=== PATIENT | male | born 1930 | race Caucasian/White ===

== ENCOUNTER 2016-06-05 15:16 | Inpatient (IN) | payer OTHER ==
[2016-06-05] MEDS ORDERED: NS 500 ML IV ONE ×4 (15:31→17:56)
--- NOTE | 2016-06-05 15:37 | PROVIDER DOCUMENTATION ---
HPI-EENT General <Christiano Leach - Last Filed: 06/05/16 16:24> - General Source: patient, family - History of Present Illness-EENT General EENT Location: reports: nose Quality of Pain: reports: none Severity: reports: mild, moderate Onset/Duration: reports: abrupt, last night Timing: reports: intermittent Prearrival Treatment: Initiated no prearrival treatment Associated Symptoms: denies: cough, ear drainage, facial pain/swelling, fever, sore throat, tooth pain Locality of Occurance: Home Similar Symptoms Previously?: No Recently seen or treated by another doctor?: No - Nose Nose Problem Symptoms: nosebleed <Urban Sorto - Last Filed: 06/05/16 17:57> - General Stated Complaint: NOSEBLEED Time Seen by Provider: 06/05/16 15:19 Allergies/Adverse Reactions: Patient Allergies Allergy/AdvReac Type Severity Reaction Status Date / Time hydrocodone bitartrate * AdvReac Unknown Verified 06/05/16 16:59 [From [place]] Home Medications: Home Medication List Medication Instructions Recorded Confirmed Last Taken Type Acetaminophen [Tylenol] 325 mg PO HS 01/09/12 06/05/16 03/03/14 History Aspirin [Aspir 81] 81 mg PO DAILY 01/09/12 06/05/16 03/03/14 History Divalproex Sodium [Depakote] 500 mg PO DAILY 01/09/12 06/05/16 06/05/16 07:00 History Gemfibrozil 1 tab PO DAILY 01/09/12 06/05/16 06/04/16 20:00 History Levothyroxine [Synthroid] 75 microgm PO DAILY 01/09/12 06/05/16 06/05/16 07:00 History Metoprolol [Lopressor] 1 tab PO DAILY 01/09/12 06/05/16 06/05/16 07:00 History PRAVAstatin [Pravachol] 40 mg PO QHS 01/09/12 06/05/16 06/04/16 20:00 History Ranitidine HCl [Zantac] 1 tab PO BID 01/09/12 06/05/16 06/05/16 07:00 History Amitriptyline HCl 10 mg PO QHS 06/05/16 06/05/16 06/04/16 20:00 History Duloxetine HCl [Cymbalta] 60 mg PO DAILY 06/05/16 06/05/16 06/05/16 08:00 History Furosemide [Lasix] 40 mg PO DAILY 06/05/16 06/05/16 06/05/16 07:00 History Gabapentin 300 mg PO BID 06/05/16 06/05/16 06/05/16 07:00 History Hydrocodone/Acetaminophen [[place] 1 tab PO QHS 06/05/16 06/05/16 06/04/16 20:00 History 5-325 Tablet] LISINOpril [Prinivil] 10 mg PO DAILY 06/05/16 06/05/16 06/05/16 07:00 History Warfarin Sodium [Coumadin] 5 mg PO QHS 06/05/16 06/05/16 06/04/16 20:00 History - History of Present Illness-EENT General Nature of Presenting Problem: Patient is a 86 y/o M that presents to the ER with nosebleed. Family reports that symptoms began last pm and was worse then the lastnight. Patient' family reports bleeding right foot. Patient's oxygenation was 80% on RA at scene per EMS (Urban Sorto) Review of Systems - Adult - REVIEW OF SYSTEMS - ADULT Constitutional: reports: no symptoms reported Eyes: denies: decreased vision, blurred vision, double vision Ears, Nose, Mouth & Throat: reports: epistaxis. denies: ear pain, throat pain Cardiovascular: denies: chest pain, palpitations Respiratory: reports: shortness of breath. denies: cough, wheezing Gastrointestinal: denies: abdominal pain, diarrhea, nausea, vomiting Genitourinary: reports: no symptoms reported Musculoskeletal: denies: back pain, joint pain, neck pain Integumentary: reports: no symptoms reported Neurological: reports: no symptoms reported Psychiatric: reports: no symptoms reported Endocrine: reports: no symptoms reported Hematologic/Lymphatic: reports: no symptoms reported Allergic/Immunologic: reports: no symptoms reported All Other Systems: Reviewed and Negative <Urban Sorto - Last Filed: 06/05/16 17:57> Past History - Adult - PAST MEDICAL HISTORY-ADULT Review of Records: reports: Old Records Reviewed, Nursing Assessment Review, Medications Reviewed Cardiovascular: reports: CAD, HTN, hyperlipidemia, SD Gastrointestinal: reports: GERD Musculoskeletal: reports: denies history - PRIOR SURGERIES/PROCEDURES Surgical/Procedure History: reports: appendectomy, CABG, cholecystectomy, hernia repair - IMMUNIZATION STATUS Childhood Immunizations: See Nurse Assessment Flu Vaccine: See Nurse Assessment - FAMILY HISTORY Family History: reviewed, not pertinent - SOCIAL HISTORY Smoking: quit greater than 1 year, cigarettes Living Situation: family <Urban Sorto - Last Filed: 06/05/16 17:57> Physical Exam- EENT - Physical Exam EENT Abdominal Exam: other (stool is semi-solid and very dark. Sent to lab for guiac. ) <Christiano Leach - Last Filed: 06/05/16 16:24> - Physical Exam EENT Initial Vital Signs Reviewed: Yes General Appearance: alert, other (chronic ill appearing) Eye Exam: bilateral eye: normal inspection, PERRL Nasal Exam: active bleeding (small amount, dripping). negative: sinus tenderness Throat Exam: normal mouth inspection Neck: full range of motion, normal inspection Respiratory: no respiratory distress, no accessory muscle use Cardiovascular: regular rate, rhythm, no edema, no murmur Abdominal Exam: normal bowel sounds, non tender, soft, no organomegaly, no pulsatile mass Extremity: pelvis stable. negative: pedal edema, swelling Integumentary: warm/dry, ecchymosis (toenails(left foot)) Neurologic: grossly normal, no motor/sensory deficits Psych/Mental Status: oriented x 3. negative: anxious, tearful <Urban Sorto - Last Filed: 06/05/16 17:57> Progress <Christiano Leach - Last Filed: 06/05/16 16:24> - XRAY 1 XRAY Study: Chest Impression: Abnormal XRAY Interpretation: poor inspiratory effort otherwise nml - CONSULTS/PCP/HOSPITALIST Notification #1 *Consult/PCP/Hospitalist*: Hospitalist Time Discussed: 17:57 Consult Disposition: Will see in ED, Admit <Urban Sorto - Last Filed: 06/05/16 17:57> - PLAN OF CARE/RESULTS Progress/Plan/Lab Results: plan of care-labs, cxr, ekg, fluids Vital Signs Temp Pulse Resp BP Pulse Ox 06/05/16 17:44 62 20 85/39 94 L 06/05/16 16:49 62 83/55 06/05/16 15:35 64 79/43 06/05/16 15:25 97.8 F 68 16 98/57 84 L hydrocodone bitartrate * [From [place]] Adverse Reaction (Verified 06/05/16 16:59) Unknown Pranay's spouse states that he hallucinates when taking hydrocodone Acetaminophen [Tylenol] 325 mg PO HS 01/09/12 Aspirin [Aspir 81] 81 mg PO DAILY 01/09/12 Divalproex Sodium [Depakote] 500 mg PO DAILY 01/09/12 Gemfibrozil 1 tab PO DAILY 01/09/12 Levothyroxine [Synthroid] 75 microgm PO DAILY 01/09/12 Metoprolol [Lopressor] 1 tab PO DAILY 01/09/12 PRAVAstatin [Pravachol] 40 mg PO QHS 01/09/12 Ranitidine HCl [Zantac] 1 tab PO BID 01/09/12 Amitriptyline HCl 10 mg PO QHS 06/05/16 Duloxetine HCl [Cymbalta] 60 mg PO DAILY 06/05/16 Furosemide [Lasix] 40 mg PO DAILY 06/05/16 Gabapentin 300 mg PO BID 06/05/16 Hydrocodone/Acetaminophen [[place] 5-325 Tablet] 1 tab PO QHS 06/05/16 LISINOpril [Prinivil] 10 mg PO DAILY 06/05/16 Warfarin Sodium [Coumadin] 5 mg PO QHS 06/05/16 Laboratory 06/05/16 06/05/16 06/05/16 15:34 15:34 15:34 WBC RBC Hgb Hct MCV MCH MCHC RDW Std Deviation Plt Count MPV Immature Gran % (Auto) Neut % (Auto) Lymph % (Auto) [place] % (Auto) Eos % (Auto) Baso % (Auto) Immature Gran # (Auto) Neut # (Auto) Lymph # (Auto) [place] # (Auto) Eos # (Auto) Baso # (Auto) Segmented Neutrophils Lymphocytes Monocytes Eosinophils Nucleated RBCs Atypical Lymphocytes Hypochromia Vacuolization Polychromasia Poikilocytosis Anisocytosis Macrocytosis Spherocytes Sodium 136 Potassium 5.5 H Chloride 101 Carbon Dioxide 18 L Anion Gap 17 BUN 108 H Creatinine 3.8 H Estimated GFR/1.73 m2 15 BUN/Creatinine Ratio 28 Glucose 136 H Calculated Osmolality 308 Calcium 8.2 L Total Bilirubin 0.51 AST 33 ALT 16 Alkaline Phosphatase 67 Troponin T 0.028 Total Protein 5.4 L Albumin 2.9 L Globulin 2.5 Albumin/Globulin Ratio 1.2 Blood Type B POSITIVE Antibody Screen NEGATIVE Crossmatch See Detail 06/05/16 15:34 WBC 11.48 H RBC 1.62 L Hgb 5.8 L* Hct 17.4 L MCV 107.4 H MCH 35.8 H MCHC 33.3 RDW Std Deviation 15.3 H Plt Count 196 MPV 11.8 H Immature Gran % (Auto) 1.0 H Neut % (Auto) 58.2 Lymph % (Auto) 29.6 [place] % (Auto) 8.4 Eos % (Auto) 2.5 Baso % (Auto) 0.3 Immature Gran # (Auto) 0.12 H Neut # (Auto) 6.67 H Lymph # (Auto) 3.40 [place] # (Auto) 0.96 H Eos # (Auto) 0.29 Baso # (Auto) 0.04 Segmented Neutrophils 52 Lymphocytes 36 Monocytes 8 Eosinophils 2 Nucleated RBCs 1 H Atypical Lymphocytes 2.0 Hypochromia 2+ Vacuolization OCCASIONAL Polychromasia 1+ Poikilocytosis 2+ Anisocytosis 2+ Macrocytosis 1+ Spherocytes OCCASIONAL Sodium Potassium Chloride Carbon Dioxide Anion Gap BUN Creatinine Estimated GFR/1.73 m2 BUN/Creatinine Ratio Glucose Calculated Osmolality Calcium Total Bilirubin AST ALT Alkaline Phosphatase Troponin T Total Protein Albumin Globulin Albumin/Globulin Ratio Blood Type Antibody Screen Crossmatch Orders Category Date Time Status Cardiac Monitoring DIRECTED Care 06/05/16 15:28 Active Oxygen Therapy- ED Nursing DIRECTED Care 06/05/16 15:28 Active Saline Loc NOW Care 06/05/16 15:20 Active Transfuse .Give-Transfuse Care 06/05/16 16:51 Active CHEST-1 VIEW [RAD] Stat Exams 06/05/16 15:28 Completed CBC WITH DIFF [HEME] Stat Lab 06/05/16 15:34 Completed COMPREHENSIVE METABOLIC PANEL [CHEM] Stat Lab 06/05/16 15:34 Completed FRESH FROZEN PLASMA [BBK] Stat Lab 06/05/16 15:34 Results LRPC (RED CELLS) [BBK] Stat Lab 06/05/16 15:34 Results OCCULT BLOOD SCREENING [STOOL] Stat Lab 06/05/16 16:30 Completed PROTIME WITH INR [COAG] Stat Lab 06/05/16 17:50 Ordered PT [PROTIME WITH INR] [COAG] Stat Lab 06/05/16 15:34 Received TROPONIN T Stat Lab 06/05/16 15:34 Completed TYPE & SCREEN [BBK] Stat Lab 06/05/16 15:34 Results 0.9% Sodium Chloride Inj [Ns] 500 ml Med 06/05/16 15:31 Discontinued IV 999 mls/hr 0.9% Sodium Chloride Inj [Ns] 500 ml Med 06/05/16 16:51 Discontinued IV As Directed 0.9% Sodium Chloride Inj [Ns] 500 ml Med 06/05/16 17:54 Discontinued IV As Directed Ns 500 ml IV Bolus X1 Med 06/05/16 17:56 Ordered 0.9% Sodium Chloride Inj [Ns] 500 ml IV 999 mls/hr Phytonadione [Vitamin K] 10 mg Med 06/05/16 17:51 Active 0.9% Sodium Chloride Inj [Ns] 50 ml IV NOW Pulse Oximetry Stat Oth 06/05/16 15:28 Active EKG [EKG] Stat Ther 06/05/16 15:28 Ordered (Urban Sorto) Departure <Christiano Leach - Last Filed: 06/05/16 16:24> - Departure Time of Disposition Order: 17:57 Certified Medical Emergency: Emergent - Critical Care Note Total Time (mins): 35 Critical Care Statement: This patient required my direct personal management to treat or rule out processes, the absence of which, could potentiallly result in sudden, clinically significant life or limb threatening deterioration. <Urban Sorto - Last Filed: 06/05/16 17:57> - Departure DIAGNOSIS: Weakness Coumadin toxicity Qualifiers: Encounter type: initial encounter Injury intent: accidental or unintentional Qualified Code(s): T45.511A - Poisoning by anticoagulants, accidental ( unintentional), initial encounter Anemia Qualifiers: Anemia type: other cause Other causes of anemia: other cause, not classified Qualified Code(s): D64.89 - Other specified anemias Disposition: ADMITTED INPATIENT 09 Condition: Stable Attestation - Scribe Verification/Attestation Scribe:: Urban Sorto Acting as Scribe for:: Christiano Leach Scribe documention review:: This chart was documented by a scribe and accurately reflects the service the provider performed and the decisions made by the provider. <Urban Sorto - Last Filed: 06/05/16 17:57> Physician Attestation - Physician Attestation I, the provider, attest to the following statement:: Christiano Leach Physician documentation Attestation:: This documentation recorded by the scribe accurately reflects the service I personally performed and the decisions made by me. <Urban Sorto - Last Filed: 06/05/16 17:57>
--- NOTE | 2016-06-05 16:07 | Diag Imaging Result Document ---
PROCEDURE NAME: CHEST-1 VIEW - 06/05/2016 PORTABLE CHEST: COMPARISON: Compared to 01/23/2012. FINDINGS: Poor inspiratory effort. Sternal wires are present. The heart is not enlarged. The vessels are not distended. No pneumonia. No pleural effusions identified. IMPRESSION: Poor inspiratory effort. Otherwise negative exam.
[2016-06-05 16:42] LABS: ALBUMIN 2.9 g/dL (3.5-5.0); CALCIUM 8.2 mg/dL (8.8-10.2); POTASSIUM 5.5 mmol/L (3.5-5.1); TOTAL BILIRUBIN 0.51 mg/dL (0.20-1.00); TOTAL PROTEIN 5.4 g/dL (6.3-8.3)
[2016-06-05 16:44] LABS: HEMOGLOBIN 5.8 g/dL (14.0-18.0)
[2016-06-05 16:46] LABS: BASO% 0.3 % (0.0-0.8); EOS# 0.29 X1000 (0.0-0.7); EOS% 2.5 % (0.0-10.0); HEMATOCRIT 17.4 % (42.0-52.0); IMM GRAN# 0.12 X1000 (0.0-0.04); LYMPH% 29.6 % (20.5-51.1); MANUAL DIFF NEEDED? YES; MCH 35.8 PG (27-31); MCHC 33.3 g/dL (33-37); MCV 107.4 FL (81-99); MONO# 0.96 X1000 (0.11-0.59); MONO% 8.4 % (1.7-9.3); MPV 11.8 FL (7.4-10.4); NEUT% 58.2 % (42.2-75.2); PLT 196 X1000 (130-400); RBC 1.62 XMIL (4.7-6.1)
[2016-06-05 17:31] LABS: EOS 2 % (1-10); HYPOCHROM 2+; LYMPHS 36 % (21-51); MONO 8 % (1-9); NRBC 1 % (0-0); POLYCHROM 1+
[2016-06-05] MEDS ORDERED: VITAMIN K 10 MG in NS 50 ML IV ONE (17:51)
[2016-06-05 17:58] LABS: INR > 11.25; PROTIME > 100.0 Seconds (9.2-11.7)
--- NOTE | 2016-06-05 18:53 | ED EKG INTERP ---
EKG Interpretation - EKG Time of EKG reading by physician:: 18:40 EKG Read and Signed by:: Jabier Turner EKG Interpretation (*Must complete 3 of following elements*): Normal Rate: 59 Rhythm: SR W/ PAC [place]: normal QRS: normal CO Interval: normal ST Wave: normal Attestation - Scribe Verification/Attestation Scribe:: Kaylee Bowling Acting as Scribe for:: Jabier Turner Scribe documention review:: This chart was documented by a scribe and accurately reflects the service the provider performed and the decisions made by the provider. Physician Attestation - Physician Attestation I, the provider, attest to the following statement:: Jabier Turner Physician documentation Attestation:: This documentation recorded by the scribe accurately reflects the service I personally performed and the decisions made by me.
--- NOTE | 2016-06-05 19:59 | HISTORY AND PHYSICAL ---
PRIMARY CARE PHYSICIAN: Louie Smart M.D. CHIEF COMPLAINT: Nosebleed and tarry stool. HISTORY OF PRESENT ILLNESS: The patient is an 86-year-old white male with a history of DVT in the right lower extremity who was on Coumadin, who presented to the emergency room with a nosebleed for the past 2 days. The patient is very weak and fatigued, and his gave the majority of the history. According to his , the patient went and had his INR checked Saturday and the level was fine. According to her, he was told to go home and continue with his Coumadin. The patient took the medication as prescribed but his noticed that he started having nosebleeds for which he has a history of nosebleeds in the past, but this was much more severe. She tried to pack it with ice and it stopped, but when he stood up it started dripping again, and this was concerning to her so she called EMS who brought him to the emergency room. The initial lab work in the emergency room found the patient's INR greater than 11, and his hemoglobin and hematocrit of 5.8 and 17.4. The patient appeared very pale and he was a little on the drowsy side. He was able to answer a few questions but appeared tired, very weak and fatigued. On further history, his reported the patient has been having tarry stool for some time. Per his the patient was doing okay with Xarelto but because of the cost his primary care doctor switched him over to Coumadin instead. The patient denied having any fever or chills. He denies having any recent sick contacts. The patient denied having any history of bleeding disorder but he has just nosebleeds even on aspirin. The patient is very immobile. He can go from the chair to the kitchen and to the bathroom, and that is about all he is able to do. PAST MEDICAL HISTORY: 1. Hypertension. 2. Peripheral neuropathy. 3. Hypothyroidism. 4. Depression. 5. Chronic pain. 6. Seizure disorder. 7. Right lower extremity deep vein thrombosis. PAST SURGICAL HISTORY: 1. Appendectomy and cholecystectomy. 2. Hernia repair. 3. Back surgery. 4. CABG. 5. Bilateral carpal tunnel surgery. 6. Cataract surgery. 7. Multiple skin lesions removed. ALLERGIES: The patient is allergic to hydrocodone bitartrate which makes him confused. FAMILY HISTORY: Reviewed and noncontributory. SOCIAL HISTORY: The patient does drink alcohol. The last alcohol he had was moonshine about 2 weeks ago. He quit smoking. No drugs. HOME MEDICATIONS: 1. Aspirin 325 one tablet p.o. daily. 2. Aspirin 81 mg p.o. daily. 3. Depakote 500 minutes mg p.o. daily. 4. Gemfibrozil 650 daily. 5. Metoprolol 50 mg p.o. daily. 6. Pravastatin 40 mg p.o. at bedtime. 7. Zantac 150 mg p.o. b.i.d. 8. Synthroid 75 mcg p.o. daily. 9. Amiodarone 10 mg at bedtime. 10. Cymbalta 60 mg p.o. daily. 11. Gabapentin 300 mg b.i.d. 12. Hydrocodone and Tylenol 1 tablet p.o. at bedtime. 13. Lasix 40 mg p.o. daily. 14. Lisinopril 10 mg p.o. daily. 15. Coumadin 5 mg at bedtime. REVIEW OF SYSTEMS: Twelve systems were reviewed and were negative except for what was mentioned in HPI. PHYSICAL EXAMINATION: VITAL SIGNS: Blood pressure 91/67, pulse of 63, respiration 18, temperature 97.6 degrees, sat of 98% on room air. GENERAL APPEARANCE: Very pale appearing, elderly white male, mildly drowsy and weak. HEENT: Anicteric, clear conjunctivae. No evidence of are blood clots in his nose. NECK: Supple. No JVD. No bruit. CARDIOVASCULAR: S1, S2. Normal rate and rhythm. No murmur, rubs, or gallops. ABDOMEN: Soft, nontender, nondistended. Normoactive bowel sounds. MUSCULOSKELETAL: No clubbing, cyanosis, or edema. RECTAL EXAMINATION: Positive for Hemoccult. No bright red blood. NEUROLOGIC: Drowsy but able to answer questions, very weak and fatigued. LABORATORY: White count 11.48, hemoglobin 5.8, hematocrit 17.4, platelets 196, 000. Chemistry: Sodium 136, potassium 5.5, chloride 101, bicarb 18, BUN 108, creatinine 3.8, glucose of 136. Liver function test is particularly within normal limits. ASSESSMENT AND PLAN: This is an 86-year-old white male admitted to the hospital for GI bleed, nosebleeds and supratherapeutic INR. 1. Anemia secondary to upper GI bleed and nosebleed. His INR is greater than 11. We gave the patient SQ 10 vitamin K and we transfused him 2 units. We will recheck his level. We will continue to transfuse to get his hemoglobin and hematocrit above 7 and 21. Consult GI in the morning. There is no active bleeding. We will send an iron panel. 2. Hypotension. The patient is currently hypotensive probably secondary to volume depletion. We will continue IV fluid, normal saline at 125 mL/h. The patient had several L bolus in the emergency room. Hold all hypertensive medications for now. 3. Depression. We will resume Cymbalta and amitriptyline. 4. Acute kidney failure probably secondary to volume depletion pre- renal. We will recheck creatinine and BUN in the morning. If still elevated, we will send the patient for and ultrasound of the kidney for what appears to be prerenal causing his kidneys to fail. We will consult Nephrology in the morning if kidney function continues to get worse. 5. DVT. The patient's INR is supratherapeutic. We will hold his Coumadin. We will recheck his INR in the morning. 6. Code Status. The patient still has not decided whether he wants to be a full code or not. We will readdress it in the morning. 7. Medications, laboratory, and radiology were reviewed. CRITICAL CARE TIME: 45 minutes. MTDD
[2016-06-05 20:19] LABS: PROTIME > 100.0 Seconds (9.2-11.7)
[2016-06-05 20:20] LABS: INR > 11.25
[2016-06-06] MEDS ORDERED: SODIUM CHLORIDE 0.9% INJ ONE (00:21)
[2016-06-06] MEDS: NEURONTIN PO SCH ×3 (01:34→20:26)
[2016-06-06] MEDS: ZOFRAN IV PRN ×2 (01:34→20:27)
[2016-06-06] MEDS: ELAVIL PO SCH ×2 (01:34→20:30)
[2016-06-06] MEDS: NS 1,000 ML IV SCH ×4 (01:34→22:34)
[2016-06-06] MEDS: PRAVACHOL PO SCH ×2 (01:34→20:27)
[2016-06-06] MEDS: ZANTAC PO SCH ×3 (01:40→20:27)
[2016-06-06] MEDS: NORCO-5 PO SCH ×2 (01:47→20:27)
--- NOTE | 2016-06-06 06:08 | EKG Report ---
Test Performed on : 06/05/2016 6:40:47 PM Test Reason : hypotensive, hx of CABG Blood Pressure : / mmHG Vent. Rate : 059 BPM Atrial Rate : 059 BPM P-R Int : 184 ms QRS Dur : 102 ms QT Int : 442 ms P-R-T Axes : 087 012 019 degrees QTc Int : 437 ms Sinus bradycardia. with premature atrial complexes. Otherwise normal ECG When compared with ECG of 10-JAN-2012 07:37, premature atrial complexes. are now present Criteria for Inferior infarct are no longer present Unconfirmed Result
[2016-06-06] MEDS: SYNTHROID PO SCH (06:47)
[2016-06-06 06:56] LABS: MANUAL DIFF NEEDED? NO
[2016-06-06 07:12] LABS: INR 1.35; PROTIME 14.3 Seconds (9.2-11.7)
[2016-06-06 07:19] LABS: CALCIUM 8.1 mg/dL (8.8-10.2); MAGNESIUM 2.7 mg/dL (1.5-2.7); POTASSIUM 4.8 mmol/L (3.5-5.1)
[2016-06-06 07:23] LABS: BASO% 0.3 % (0.0-0.8); EOS# 0.12 X1000 (0.0-0.7); EOS% 1.9 % (0.0-10.0); HEMOGLOBIN 7.3 g/dL (14.0-18.0); IMM GRAN# 0.07 X1000 (0.0-0.04); IMM GRAN% 1.1 % (0.0-0.5); LYMPH# 2.15 X1000 (1.2-3.4); LYMPH% 34.7 % (20.5-51.1); MCH 32.6 PG (27-31); MCHC 33.2 g/dL (33-37); MCV 98.2 FL (81-99); MONO# 0.58 X1000 (0.11-0.59); MONO% 9.4 % (1.7-9.3); MPV 11.6 FL (7.4-10.4); NEUT% 52.6 % (42.2-75.2); PLT 137 X1000 (130-400); RBC 2.24 XMIL (4.7-6.1)
[2016-06-06 07:49] LABS: URINE CULTURE NEEDED? NO; URINE MICRO REVIEW NEEDED? NO; URINE SOURCE CATH
[2016-06-06 08:00] LABS: BILIRUBIN URINE NEGATIVE (NEGATIVE); BLOOD URINE NEGATIVE (NEGATIVE); COLOR YELLOW; GLUCOSE URINE NEGATIVE (NEGATIVE); LEUKOCYTES URINE NEGATIVE (NEGATIVE); NITRITE URINE NEGATIVE (NEGATIVE); PROTEIN URINE NEGATIVE (NEGATIVE); SP GRAVITY URINE 1.016; TURBIDITY URINE CLEAR (CLEAR); UROBILINOGEN URINE NORMAL (NORMAL)
[2016-06-06 08:02] LABS: UR EPITHELIAL CELLS <10 /HPF (<10); URINE BACTERIA NEGATIVE /HPF; URINE RBC <10 /HPF (<10); URINE WBC <10 /HPF (<10)
--- NOTE | 2016-06-06 08:54 | PROGRESS NOTE ---
DATE: 06/06/2016 SUBJECTIVE: The patient is feeling a little better today. No fever. No chills. No nausea, vomiting, or diarrhea. No recurrent nosebleeds since admission. Has not had a bowel movement. PHYSICAL EXAMINATION: Vital Signs: Blood pressure is 84/36, pulse of 55, respirations 21, temperature of 96.8 degrees, saturations of 91% on 4 L. General Appearance: Elderly, white male. A little drowsy but able to answer questions appropriately. HEENT: Pale appearing. Anicteric sclerae, clear conjunctivae. Neck: Supple. No JVD. No bruit. Cardiovascular: S1 and S2. Normal rate and rhythm. No murmur, rubs, or gallops. Pulmonary: Clear to auscultation bilaterally. GI: Soft, nontender. Mildly distended. Normoactive bowel sounds. Musculoskeletal: Right leg is larger than the left. No pain to palpation. No redness. LABORATORY: His white count today is 6.2, hemoglobin 7.3, hematocrit of 22, platelets 137,000,. PT and INR are normal at 14.3 and 1.35. Chemistry: Sodium 138, potassium 4.8, chloride 104, bicarb 20, BUN 97, creatinine 2.9, glucose of 175. ASSESSMENT AND PLAN: This is an 86-year-old, white male admitted to the hospital for epistaxis and upper gastrointestinal bleed. 1. Upper gastrointestinal bleed, probably secondary to gastritis or ulcer in the setting of a supratherapeutic INR. His INR is has been normalized. We will consult gastroenterology for an endoscopy. If there is no ulcer, we have to restart him back on either heparin or Xarelto. We will consult social and human services assistant to take a look at the co-pay for his Xarelto. 2. Anemia secondary to acute blood loss. We will recheck his hemoglobin and hematocrit later this evening. If it drops below 7 and 21, we will transfuse him again. 3. Hypertension, probably secondary to his blood pressure medications. We have held this since admission. We will continue to monitor the patient in the intensive care unit. We will continue intravenous fluid resuscitation. The patient appeared to be very dehydrated. 4. Acute renal failure, improving. We will continue to monitor his renal function. We will get x-rays and lab in the morning. 5. Code status. The patient is a full code. 6. Deep vein thrombosis prophylaxis. We will put the patient on sequential compression devices for now.
[2016-06-06] MEDS ORDERED: SODIUM CHLORIDE 0.9% 10 ML ONE (08:58)
[2016-06-06] MEDS: PROTONIX IV SCH (09:04)
[2016-06-06] MEDS: CYMBALTA PO SCH (09:05)
[2016-06-06] MEDS: LOPID PO SCH (09:05)
[2016-06-06] MEDS: DEPAKOTE PO SCH (09:05)
--- NOTE | 2016-06-06 09:23 | Diag Imaging Result Document ---
PROCEDURE NAME: CHEST-PORTABLE - 06/06/2016 AP PORTABLE CHEST AT 0855 HOURS: FINDINGS: There is ill-defined opacity present on the right which was not present on 06/05/2016. This appears to be largely in the upper lobe but may be partially in the middle or lower lobes. The left lung is unchanged in appearance. IMPRESSION: Minimal atelectasis or pneumonia particularly in the right upper lobe.
[2016-06-06] MEDS: LEVOPHED 8 MG in D5 1/2 NS 250 ML IV SCH (11:22)
[2016-06-06] MEDS: ZOSYN 2.25 GM/NS 50 ML IV SCH ×2 (14:06→20:27)
--- NOTE | 2016-06-06 14:45 | CONSULTATION ---
DATE OF CONSULTATION: 06/06/2016 REASON FOR CONSULTATION: GI bleed, anemia. 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 Most of the information is obtained from the chart and the nurse. The patient does arouse, but is unable to give full history. His significant other has gone home for the evening. Per report, the patient had become very weak and fatigued. He had started having some nosebleeds over the last several days. He had also noticed some black tarry stool. He came in for evaluation and found to have significant anemia and PT/INR elevation with INR greater than 11. Per report, the patient had been started on Xarelto prior, but it was too expensive and he was changed over to Coumadin. No reported fever. PAST MEDICAL HISTORY: Hypertension, neuropathy hypothyroidism, depression, chronic pain syndrome, history of seizure disorder, history of right lower extremity DVT on Coumadin therapy. PAST SURGICAL HISTORY: Appendectomy, cholecystectomy, hernia repair, back surgery, coronary artery bypass graft, bilateral carpal tunnel surgery, cataract surgery, skin lesions removed. ALLERGIES: Hydrocodone/[place] with unknown reaction. HOME MEDICATIONS: 1. Coumadin 5 mg every night. 2. Zantac 1 tablet twice daily. 3. Pravachol 40 mg every night. 4. Lopressor 1 tablet daily. 5. Synthroid 75 mcg daily. 6. Prinivil 10 mg daily. 7. [place] 5/325 every night. 8. Gemfibrozil 1 tablet daily. 9. Gabapentin 300 mg twice a day. 10. Lasix 40 mg daily. 11. Cymbalta 60 mg daily. 12. Depakote 500 mg daily. 13. Aspirin 81 mg daily. 14. Amitriptyline 10 mg every night. 15. Tylenol 325 every night per chart. SOCIAL HISTORY: Patient uses alcohol. Noted to drink moonshine. No reported tobacco use. REVIEW OF SYSTEMS: Per HPI. PHYSICAL EXAMINATION: Vital Signs: Temperature 96.5 degrees, pulse 63, respirations 15 blood pressure 77/49. He has recently been started on Levophed for hypotension. General: Generally patient is resting; he does arouse to stimulus. He follows simple commands. Respiratory: With congestion and wheezing noted. Cardiovascular: Regular rate and rhythm. Abdomen: Soft, nontender. Positive bowel sounds. Extremities: With lower extremity edema noted. LABORATORY FINDINGS: He had a Hemoccult positive stool. Hematology on admission: His hemoglobin and hematocrit were 5.8 and 17.4. After blood transfusions, hemoglobin is 7.3, hematocrit 22.0. He has received 2 units of packed red blood cells and 4 units of FFP .WBC 6.20, MCV 98.2, platelet 137. Coagulation: Pro time 14.3, down from greater than 100 on admission. INR 1.35 down from greater than 11 on admission. PTT 29.6. Chemistry: Sodium 138, potassium 4.8, chloride 104, CO2 20, BUN 97, creatinine 2.9, glucose 175, calcium 8.1, total bilirubin 0.51, AST 33, ALT 16, alkaline phosphatase 67. ASSESSMENT: 1. Gastrointestinal bleed. 2. Severe anemia. 3. Coumadin toxicity. 4. History of deep vein thrombosis. 5. Hypotension, recently started on Levophed after he has received fluid resuscitation. PLAN: Continue to monitor hemoglobin and hematocrit. Monitor for any active bleeding. Transfuse packed red blood cells as needed. We will plan to proceed with an EGD tomorrow if patient is stable enough. Further plans will be made according to findings. I have discussed this case with Dr. Steinberg. I have also called the patient's significant other, Amparo, and talked with her. She voiced understanding of the EGD procedure. All pertinent questions were answered. I have discussed the benefits and risk of the procedure, and she wished to proceed if needed. Thank you for this consultation. Dictated by CLARK Almodovar for Bruno Steinberg MD
[2016-06-06] MEDS: DUONEB (A & A) INH SCH ×2 (15:52→19:31)
[2016-06-06 16:01] LABS: HEMATOCRIT 24.7 % (42.0-52.0); HEMOGLOBIN 8.2 g/dL (14.0-18.0)
[2016-06-07] MEDS: DUONEB (A & A) INH SCH ×4 (03:22→19:43)
[2016-06-07] MEDS: ZOSYN 2.25 GM/NS 50 ML IV SCH (05:00)
[2016-06-07] MEDS: SYNTHROID PO SCH (06:34)
[2016-06-07 07:18] LABS: BASO% 0.9 % (0.0-0.8); EOS# 0.12 X1000 (0.0-0.7); EOS% 1.9 % (0.0-10.0); HEMATOCRIT 22.7 % (42.0-52.0); HEMOGLOBIN 7.4 g/dL (14.0-18.0); IMM GRAN# 0.21 X1000 (0.0-0.04); IMM GRAN% 3.3 % (0.0-0.5); LYMPH# 1.54 X1000 (1.2-3.4); LYMPH% 24.1 % (20.5-51.1); MANUAL DIFF NEEDED? YES; MCH 32.9 PG (27-31); MCHC 32.6 g/dL (33-37); MCV 100.9 FL (81-99); MONO# 0.71 X1000 (0.11-0.59); MONO% 11.1 % (1.7-9.3); MPV 11.5 FL (7.4-10.4); NEUT% 58.7 % (42.2-75.2); PLT 157 X1000 (130-400); RBC 2.25 XMIL (4.7-6.1)
[2016-06-07 07:24] LABS: INR 1.48; PROTIME 15.7 Seconds (9.2-11.7)
[2016-06-07 07:57] LABS: CALCIUM 8.1 mg/dL (8.8-10.2); POTASSIUM 5.4 mmol/L (3.5-5.1)
[2016-06-07 08:50] LABS: LYMPHS 18 % (21-51); MONO 3 % (1-9)
[2016-06-07] MEDS ORDERED: SODIUM CHLORIDE 0.9% 10 ML ONE (08:53)
[2016-06-07] MEDS: CYMBALTA PO SCH ×2 (09:02→09:07)
[2016-06-07] MEDS: ZANTAC PO SCH ×3 (09:02→20:20)
[2016-06-07] MEDS: DEPAKOTE PO SCH ×2 (09:02→09:05)
[2016-06-07] MEDS: PROTONIX IV SCH (09:02)
[2016-06-07] MEDS: NEURONTIN PO SCH ×3 (09:02→20:20)
[2016-06-07] MEDS: LOPID PO SCH (09:04)
[2016-06-07] MEDS ORDERED: LEVAQUIN 750 MG/D5W 150 ML IV SCH (09:15)
--- NOTE | 2016-06-07 11:34 | PROGRESS NOTE ---
DATE: 06/07/2016 SUBJECTIVE: The patient is feeling better. He is much more awake and alert. Answers question appropriately. His and nephew were at the bedside. All questions were invited and entertained. OBJECTIVE: Vital Signs: Blood pressure 88/57, pulse of 77, respirations 19, temperature of 97.3 degrees, saturations of 92% on 4 L. General Appearance: Elderly, white male in moderate distress. HEENT: Anicteric sclerae. Clear conjunctivae. Neck: Supple. No JVD. No bruit. Cardiovascular: S1 and S2. Normal rate and rhythm. No murmur, rubs, or gallops. Pulmonary: Clear to auscultation bilaterally. GI: Soft, nontender, nondistended. Normoactive bowel sounds. Musculoskeletal: No clubbing, cyanosis, or edema. Laboratory: His WBC is 6.39, hemoglobin 7.44, hematocrit of 22.7, platelets of 157,000. Chemistry: Sodium 144, potassium 5.4, chloride 110, carbon dioxide 17, BUN 84, creatinine 2.4, glucose of 148. ASSESSMENT AND PLAN: This is an 86-year-old, white male admitted to the hospital for supratherapeutic INR and upper gastrointestinal bleed. 1. Upper gastrointestinal bleed. Gastroenterology is planning to do an endoscopy today. We will continue to monitor his hemoglobin and hematocrit, and transfuse as needed. His hemoglobin and hematocrit have remained stable. 2. Hypotension, probably secondary to hypovolemia and pneumonia. We will continue Zosyn but we will add Levaquin for atypical coverage. Most likely, the patient is having aspiration pneumonia. It is too late for a blood culture due to antibiotic initiation yesterday. 3. Hypotension. We will continue to hold his blood pressure medication. We will keep the patient on Levophed for now. We will increase his intravenous fluids up to 200 mL per hour. 4. Acute renal failure, improving. We will continue to monitor his renal function. 5. Depression. Continue Elavil and Cymbalta. 6. Hyperlipidemia. We will continue Pravachol and Lopid. 7. Hypothyroidism. Continue Synthroid. 8. Code status. The patient is a full code. 9. Deep vein thrombosis prophylaxis. The patient is on sequential compression devices for now since he had a gastrointestinal bleed.
[2016-06-07] MEDS ORDERED: MYLICON DROPS (DOSE) MISC ONE (12:47)
[2016-06-07] MEDS ORDERED: DIPRIVAN 1% ONE (13:03)
[2016-06-07] MEDS: ZOSYN 3.375 GM/NS 50 ML IV SCH ×2 (13:08→20:19)
[2016-06-07] MEDS: NS 1,000 ML IV SCH ×2 (13:09→20:24)
[2016-06-07] MEDS ORDERED: XYLOCAINE-MPF 2% ONE (13:26)
--- NOTE | 2016-06-07 13:28 | OPERATIVE NOTE ---
PROCEDURE DATE: 06/07/2016 DATE OF PROCEDURE: 06/07/2016. PROCEDURE: Esophagogastroduodenoscopy. PREOPERATIVE DIAGNOSES: 1. Gastrointestinal bleed. 2. Anemia secondary to gastrointestinal bleed. POSTOPERATIVE DIAGNOSIS: Gastritis, otherwise normal esophagogastroduodenoscopy. HISTORY: This 86-year-old gentleman was admitted to the hospital with Coumadin toxicity and profound anemia with a history of melenic stool. Endoscopy was done to identify the etiology and treat accordingly. DESCRIPTION OF PROCEDURE: Informed consent obtained from the patient. Procedure, risks, benefits, alternatives were explained in layman's terms. They understood and all the pertinent questions answered. Patient was brought to the endoscopy unit and was premedicated as per anesthesia. After adequate sedation while he was lying in supine position, the gastroscope was introduced into the posterior pharynx and advanced under direct vision into the esophagus. Esophagus in its entire length appeared to be normal. No esophagitis, webs, rings, varices were seen. No evidence of active bleeding was seen in the esophagus. Scope was then passed through the esophagus into the stomach. The stomach was examined in both straight and retroflexed views, which revealed normal cardia, fundus, body. In the antrum along the superior aspect of the pylorus, evidence of gastritis noted. These erosions were localized. I did not see any stigmata of recent bleed. There was no ulcer, AVM or masses seen. There was no evidence of recent bleed. Scope was then passed through the normal pylorus, into the duodenal bulb, and then second part of the duodenum. Both appeared normal. Again, there was no evidence of stigmata or recent bleed. The scope was removed. Patient tolerated the procedure well. No complications noted. Patient was then transferred to the recovery area in a stable condition. IMPRESSION: Gastritis, otherwise normal esophagogastroduodenoscopy. Bleeding could have been possible from this area, especially in the wake of Coumadin toxicity. However, small bowel pathology or colon pathology is also a possibility. At this point, I would use anticoagulation judiciously and keep it within the therapeutic range. I will be available if further needed.
[2016-06-07] MEDS: PRAVACHOL PO SCH (20:20)
[2016-06-07] MEDS: NORCO-5 PO SCH (20:20)
[2016-06-07] MEDS: ELAVIL PO SCH (20:20)
[2016-06-08] MEDS: DUONEB (A & A) INH SCH ×4 (03:23→19:35)
[2016-06-08] MEDS: ZOSYN 3.375 GM/NS 50 ML IV SCH ×3 (05:00→20:28)
[2016-06-08 05:08] LABS: MANUAL DIFF NEEDED? NO
[2016-06-08 05:14] LABS: BASO% 0.4 % (0.0-0.8); EOS# 0.06 X1000 (0.0-0.7); EOS% 1.2 % (0.0-10.0); HEMATOCRIT 22.7 % (42.0-52.0); HEMOGLOBIN 7.2 g/dL (14.0-18.0); IMM GRAN# 0.15 X1000 (0.0-0.04); LYMPH# 1.26 X1000 (1.2-3.4); LYMPH% 25.5 % (20.5-51.1); MCHC 31.7 g/dL (33-37); MCV 104.1 FL (81-99); MONO# 0.64 X1000 (0.11-0.59); MPV 10.7 FL (7.4-10.4); NEUT% 56.9 % (42.2-75.2); PLT 160 X1000 (130-400); RBC 2.18 XMIL (4.7-6.1)
[2016-06-08] MEDS: SYNTHROID PO SCH (06:00)
[2016-06-08 06:04] LABS: CALCIUM 8.1 mg/dL (8.8-10.2); POTASSIUM 5.1 mmol/L (3.5-5.1)
[2016-06-08] MEDS: LEVOPHED 8 MG in D5 1/2 NS 250 ML IV SCH (06:39)
[2016-06-08] MEDS: NS 1,000 ML IV SCH ×2 (08:46→20:25)
[2016-06-08] MEDS: ZANTAC PO SCH ×2 (08:46→20:28)
[2016-06-08] MEDS: CYMBALTA PO SCH (08:46)
[2016-06-08] MEDS: PROTONIX IV SCH (08:47)
[2016-06-08] MEDS: DEPAKOTE PO SCH (08:47)
[2016-06-08] MEDS: NEURONTIN PO SCH ×2 (08:47→20:28)
[2016-06-08] MEDS: LOPID PO SCH (08:47)
[2016-06-08] MEDS ORDERED: XARELTO PO SCH (09:00)
--- NOTE | 2016-06-08 12:45 | PROGRESS NOTE ---
DATE: 06/08/2016 SUBJECTIVE: The patient denies complaints or pain at present time. OBJECTIVE: He is awake, alert.Respiratory: Essentially clear. Abdomen: Soft, nontender. Vital Signs: Temperature 97.6 degrees, pulse 85, respirations 21, blood pressure 101/54. DIAGNOSTIC FINDINGS: EGD done on 06/07/2016 for anemia and GI bleed showed gastritis otherwise normal EGD. There was report of black tarry stool today. LABORATORY: Hematology: White count 4.94, hemoglobin 7.2, hematocrit 22.7, MCV 104.1, platelet 160,000. Coagulation on 06/07/2016: Pro time 15.7, INR 1.48. Chemistry: Sodium 143, potassium 5.1, chloride 111, CO2 19, BUN 58, creatinine 1.9. Glucose 154. ASSESSMENT AND PLAN: 1. Anemia. 2. GI bleed with EGD findings consistent with gastritis. 3. Anticoagulation currently on hold due to GI bleed. Will continue to follow. He may need further investigation for his bleeding. Dr. Steinberg will be on-call this weekend. Further plans will be made as needed. Dictated by CLARK Almodovar for Bruno Steinberg MD
[2016-06-08] MEDS ORDERED: NS 500 ML ONE (13:23)
--- NOTE | 2016-06-08 14:24 | PROGRESS NOTE ---
DATE: 06/08/2016 SUBJECTIVE: The patient is feeling better today. He is eating today. The nursing staff feeding him. Awake, alert, oriented. Answered questions appropriately. OBJECTIVE: Vital signs: Blood pressure 104/63, pulse of 88, respiration 18, temperature 98.7 degrees, saturations of 97% on 5 L nasal cannula. General appearance: Elderly white male in mild distress. HEENT: Poor dentition. Anicteric. Clear conjunctivae. Neck: Supple. No JVD. No bruit. Cardiovascular: S1, S2. Normal rate and rhythm. No murmur, rubs, or gallops. Pulmonary: Clear to auscultation bilaterally. GI: Soft, nontender, nondistended. Normoactive bowel sounds. Musculoskeletal: No clubbing, cyanosis or edema. LABORATORY: Today white count 4.94, hemoglobin 7.2, hematocrit of 22.7, platelets 160,000. Chemistry. Sodium 143, potassium of 5.1, chloride 111, bicarb 19, BUN 58, creatinine 1.9 down from 2.4. ASSESSMENT AND PLAN: This is an 86-year-old admitted to the hospital for melena and epistaxis. 1. Anemia secondary to bleeding. May be due to supratherapeutic INR. His INR has been normalized. Will put the patient on Eliquis. Will consult the geriatric social worker try to help the patient with home Eliquis. He is not doing very well with Coumadin for his right lower extremity deep vein thrombosis. 2. Pneumonia. Will continue Zosyn for now. Will discontinue Levaquin. Unlikely he is having atypical infections. Most likely aspiration. 3. Deep vein thrombosis. Again discussed with geriatric social worker. Will recommend Eliquis which may be issue to acquire for the patient. Will change patient to Eliquis 10 twice a day for the next 10 days then 5 mg twice a day thereafter. 4. Hyperlipidemia. Will continue Pravachol. 5. Acute renal failure. His kidney function continued to improve. 6. Hypertension may be secondary to dehydration and sepsis. Will continue IV fluid, antibiotics and pressor as needed. Will keep the patient in ICU today, may be able to transfer him tomorrow if we can get him off of the pressor. 7. Gastroesophageal reflux disease. Will continue Zantac and Protonix. 8. Hypothyroidism. Continue Synthroid. CODE STATUS: Patient is a full code.
[2016-06-08] MEDS: ELIQUIS PO SCH ×2 (14:55→22:50)
[2016-06-08] MEDS: TYLENOL PO PRN (14:55)
[2016-06-08] MEDS: NORCO-5 PO SCH (20:26)
[2016-06-08] MEDS: PRAVACHOL PO SCH (20:26)
[2016-06-08] MEDS: ELAVIL PO SCH (20:28)
[2016-06-09] MEDS: DUONEB (A & A) INH SCH ×4 (02:51→23:12)
[2016-06-09] MEDS: NS 1,000 ML IV SCH (04:48)
[2016-06-09] MEDS: ZOSYN 3.375 GM/NS 50 ML IV SCH ×3 (04:49→21:15)
[2016-06-09] MEDS: SYNTHROID PO SCH (06:23)
[2016-06-09 06:55] LABS: BASO% 0.3 % (0.0-0.8); EOS# 0.14 X1000 (0.0-0.7); EOS% 4.1 % (0.0-10.0); HEMATOCRIT 27.2 % (42.0-52.0); HEMOGLOBIN 8.7 g/dL (14.0-18.0); IMM GRAN# 0.11 X1000 (0.0-0.04); IMM GRAN% 3.2 % (0.0-0.5); LYMPH# 0.75 X1000 (1.2-3.4); LYMPH% 21.7 % (20.5-51.1); MANUAL DIFF NEEDED? YES; MCH 31.5 PG (27-31); MCV 98.6 FL (81-99); MONO# 0.46 X1000 (0.11-0.59); MONO% 13.3 % (1.7-9.3); MPV 9.9 FL (7.4-10.4); NEUT% 57.4 % (42.2-75.2); PLT 144 X1000 (130-400); RBC 2.76 XMIL (4.7-6.1)
[2016-06-09 07:05] LABS: CALCIUM 7.8 mg/dL (8.8-10.2)
[2016-06-09 08:17] LABS: BANDS 4 % (0-1); LYMPHS 14 % (21-51); MONO 10 % (1-9)
[2016-06-09] MEDS: ZANTAC PO SCH ×2 (08:47→21:15)
[2016-06-09] MEDS: LOPID PO SCH (08:48)
[2016-06-09] MEDS: DEPAKOTE PO SCH (08:48)
[2016-06-09] MEDS: ELIQUIS PO SCH ×2 (08:48→21:15)
[2016-06-09] MEDS: NEURONTIN PO SCH ×2 (08:48→21:14)
[2016-06-09] MEDS: CYMBALTA PO SCH (08:48)
[2016-06-09] MEDS: PROTONIX IV SCH (08:48)
[2016-06-09] MEDS ORDERED: LASIX IV ONE (10:38)
[2016-06-09] MEDS ORDERED: COLACE PO ONE (10:42)
[2016-06-09] MEDS ORDERED: MIRALAX PO ONE (10:42)
[2016-06-09] MEDS: NORCO-5 PO PRN (11:24)
--- NOTE | 2016-06-09 12:01 | PROGRESS NOTE ---
DATE: 06/09/2016 SUBJECTIVE: The patient is feeling much better today. He is a bit swollen with all the fluid but no shortness of breath. His was at the bedside. All questions were invited and entertained. No recurrent bleeding. Vital signs: Blood pressure 110/64, pulse of 82, respirations 21, temperature 97.6 degrees, saturation of 93% on 5 L. General appearance: Well-developed white male in no acute distress. HEENT: Anicteric. Clear conjunctivae. Neck: Supple. No JVD. No bruits. Cardiovascular: S1, S2. Normal rate and rhythm. No murmur, rubs, or gallops. Pulmonary: Clear to auscultation bilaterally. GI: Soft, nontender, nondistended. Normoactive bowel sounds. Musculoskeletal: No clubbing, cyanosis. 2+ pitting edema bilaterally. LABORATORY: His white count today is 3.45, hemoglobin 8.7, hematocrit of 27.2, platelets of 144,000. Chemistry: Sodium 143, potassium 5.0, chloride 114, bicarb 19, BUN 37, creatinine of 1.5, glucose of 145. ASSESSMENT AND PLAN: This is an 86-year-old white male, admitted to the hospital for supratherapeutic INR with melena and epistaxis. 1. Anemia secondary to bleed due to supratherapeutic INR. EGD showed gastritis. Hemoglobin and hematocrit has been normalized. He did receive a unit of packed red blood cells. After a long discussion with social worker masters, and family they agreed to put the patient on Eliquis. We will start him on 5 mg twice a day for now but he will need only 2.5 twice a day at discharged due to his age in his renal function. 1. Pneumonia. We will keep the patient on Zosyn for now. 2. Deep vein thrombosis prophylaxis. The patient is on Eliquis. 3. Hyperlipidemia. Continue Pravachol. 4. Acute renal failure, improving with IV fluids. We will give 1 dose of Lasix as the patient started having volume overload. 5. Nutrition. He is able to eat p.o. without any difficulty. 6. Hypertension. We will continue to hold his blood pressure for now and will transfer the patient to the floor today. Overall, the patient is improving and expect him to be improving at this rate.
[2016-06-09] MEDS: PRAVACHOL PO SCH (21:15)
[2016-06-09] MEDS: ELAVIL PO SCH (21:15)
[2016-06-10] MEDS: DUONEB (A & A) INH SCH ×4 (03:00→21:15)
[2016-06-10] MEDS: ZOSYN 3.375 GM/NS 50 ML IV SCH ×3 (04:51→22:52)
[2016-06-10] MEDS: SYNTHROID PO SCH (06:00)
[2016-06-10 06:14] LABS: MANUAL DIFF NEEDED? NO
[2016-06-10 06:16] LABS: BASO% 0.2 % (0.0-0.8); EOS# 0.15 X1000 (0.0-0.7); EOS% 3.7 % (0.0-10.0); HEMATOCRIT 28.8 % (42.0-52.0); HEMOGLOBIN 9.2 g/dL (14.0-18.0); IMM GRAN# 0.08 X1000 (0.0-0.04); LYMPH# 0.93 X1000 (1.2-3.4); MCH 31.7 PG (27-31); MCHC 31.9 g/dL (33-37); MCV 99.3 FL (81-99); MONO% 14.8 % (1.7-9.3); MPV 9.9 FL (7.4-10.4); NEUT% 56.3 % (42.2-75.2); PLT 153 X1000 (130-400)
[2016-06-10 06:44] LABS: CALCIUM 8.7 mg/dL (8.8-10.2); POTASSIUM 5.1 mmol/L (3.5-5.1)
[2016-06-10] MEDS ORDERED: SODIUM CHLORIDE 0.9% 10 ML ONE (07:40)
[2016-06-10] MEDS: CYMBALTA PO SCH (08:34)
[2016-06-10] MEDS: LOPID PO SCH (08:34)
[2016-06-10] MEDS: NEURONTIN PO SCH ×2 (08:34→20:38)
[2016-06-10] MEDS: PROTONIX IV SCH (08:34)
[2016-06-10] MEDS: MIRALAX PO SCH (08:34)
[2016-06-10] MEDS: ZANTAC PO SCH ×2 (08:35→20:38)
[2016-06-10] MEDS: ELIQUIS PO SCH ×2 (08:35→20:38)
[2016-06-10] MEDS: DEPAKOTE PO SCH (08:35)
[2016-06-10] MEDS ORDERED: LASIX IV ONE (12:30)
--- NOTE | 2016-06-10 14:43 | PROGRESS NOTE ---
DATE: 06/10/2016 SUBJECTIVE: The patient is feeling much better today. No fever, no chills. No nausea, vomiting, or diarrhea. He want to go home. His was at the bedside. All questions were invited and entertained. OBJECTIVE: Vital Signs: Blood pressure 131/70, pulse of 74, respirations 20, temperature 98.3 degrees, saturations of 97% on room air. General Appearance: Well-developed, well-nourished white male in no acute distress. HEENT: Anicteric. Clear conjunctivae. Neck: Supple. No JVD. No bruit. Cardiovascular: S1, S2. Normal rate and rhythm. No murmur, rubs, or gallops. Pulmonary: Clear to auscultation bilaterally. GI: Soft, nontender, nondistended. Normoactive bowel sounds. Musculoskeletal: Right lower extremity edema 2+. Left 1+. LABORATORY: White count 4.05, hemoglobin 9.2, hematocrit 28.8, platelets of 153,000. Chemistry. Sodium 141, potassium 5.1, chloride 109, bicarb 21, BUN 30, creatinine 1.4, glucose 130. ASSESSMENT AND PLAN: This is an 86-year-old admitted to the hospital for hematochezia and . 1. Anemia secondary to acute blood loss due to supratherapeutic INR. On admission INR greater than 13. The patient was on Coumadin. The patient currently on Eliquis and has been tolerating it well. Recommend to put the patient on Eliquis 5 mg b.i.d. for 10 days and then 2.5 mg p.o. b.i.d. thereafter for his DVT since the patient has high risk for bleeding. family assessment worker has been consulted to help the patient with to obtain the Eliquis. He has a coupon in the drawer. The prescription was given to the foster care social worker. 2. Pneumonia probably secondary to aspiration pneumonia. Will keep the patient on Zosyn for now. We did not have the culture. Will transition the patient to Levaquin and if he continued to do well and his chest x-ray tomorrow normal he should be able to go home then. 3. Acute renal failure. His kidney function continued to improve. We had stopped the fluid and started him back on his Lasix and he was getting volume overloaded. His kidney function still holding well. Will give him another dose of Lasix today and will monitor his renal function tomorrow. If he continues to do well will discharge the patient home then.
--- NOTE | 2016-06-10 15:51 | PROGRESS NOTE ---
DATE: 06/10/2016 SUBJECTIVE: The patient states he is having a little pain in his legs and arms. Otherwise no reported abdominal pain. OBJECTIVE: Vital Signs: Temperature 98.3 degrees, pulse 71, respirations 16, blood pressure 131/70. General Appearance: Patient is awake, alert, no acute distress. Respiratory: Lung sounds essentially clear bilaterally. Abdomen: Soft, nontender. DIAGNOSTIC RESULTS LABORATORY: Hematology: White count 4.05, hemoglobin 9.2, hematocrit 28.8, MCV 99.3, platelet 153,000. Coagulation on 06/07/2016 PT 15.7, INR 1.48, PTT 29.6. Chemistry: Sodium 141, potassium 5.1, chloride 109, CO2 21, BUN 30, creatinine 1.4, glucose 130, calcium 8.7. ASSESSMENT AND PLAN: 1. Pneumonia. 2. Anemia has improved. No noted active bleeding now. Patient is being transitioned from Coumadin to Eliquis. He has received packed red blood cells. His hemoglobin, hematocrit are stable. We will continue to follow for any active bleeding and monitor hemoglobin and hematocrit and further plans will be made as needed. Dictated by CLARK Almodovar for Bruno Steinberg MD
[2016-06-10] MEDS: NORCO-5 PO PRN (16:29)
[2016-06-10] MEDS: PRAVACHOL PO SCH (20:38)
[2016-06-10] MEDS: ELAVIL PO SCH (20:43)
[2016-06-11] MEDS: DUONEB (A & A) INH SCH ×2 (03:37→23:20)
[2016-06-11] MEDS: ZOSYN 3.375 GM/NS 50 ML IV SCH ×3 (04:15→21:40)
[2016-06-11 07:23] LABS: MANUAL DIFF NEEDED? NO
[2016-06-11 07:37] LABS: CALCIUM 8.8 mg/dL (8.8-10.2); POTASSIUM 4.6 mmol/L (3.5-5.1)
[2016-06-11 07:45] LABS: BASO% 0.3 % (0.0-0.8); EOS# 0.21 X1000 (0.0-0.7); EOS% 5.8 % (0.0-10.0); HEMOGLOBIN 9.1 g/dL (14.0-18.0); IMM GRAN% 2.8 % (0.0-0.5); LYMPH# 0.88 X1000 (1.2-3.4); LYMPH% 24.4 % (20.5-51.1); MCH 31.4 PG (27-31); MCHC 31.4 g/dL (33-37); MONO# 0.53 X1000 (0.11-0.59); MONO% 14.7 % (1.7-9.3); MPV 10.1 FL (7.4-10.4); PLT 151 X1000 (130-400)
--- NOTE | 2016-06-11 08:06 | Diag Imaging Result Document ---
PROCEDURE NAME: CHEST-2 VIEWS - 06/11/2016 AP AND LATERAL CHEST: FINDINGS: The inspiration is suboptimal. There is bilateral subsegmental atelectasis particularly in the right lower lobe. This is slightly worse than on 06/06/2016. IMPRESSION: Worsened basilar atelectasis.
--- NOTE | 2016-06-11 08:35 | PROGRESS NOTE ---
DATE: 06/11/2016 SUBJECTIVE: Patient states he feels a little better today. He had just came back from his x-ray. OBJECTIVE: General: Patient is in no acute distress. Respiratory: Lung sounds essentially clear. Abdomen: Soft, nontender. Vital Signs: Temperature 98.2 degrees, pulse 80, respirations 20, blood pressure 128/53. LABORATORY: Hematology: White count 3.60, hemoglobin 9.1, hematocrit 29.0, MCV 100.0. Chemistry: Sodium 137, potassium 4.6, chloride 104, CO2 24, BUN 24, creatinine 1.3. ASSESSMENT AND PLAN: Anemia has improved. No evidence of active bleeding. The patient has been transitioned from Coumadin to Eliquis. He has received packed red blood cells. Hemoglobin and hematocrit are stable now. We will continue to follow. He had an EGD on June 07, 2016 that showed gastritis. Further evaluation will be made according to his progress and as needed. Dictated by CLARK Almodovar for Bruno Steinberg MD
[2016-06-11] MEDS: LOPID PO SCH (11:44)
[2016-06-11] MEDS: CYMBALTA PO SCH (11:44)
[2016-06-11] MEDS: ZANTAC PO SCH (11:44)
[2016-06-11] MEDS: MIRALAX PO SCH (11:45)
[2016-06-11] MEDS: NEURONTIN PO SCH ×2 (11:45→21:40)
[2016-06-11] MEDS: PROTONIX IV SCH (11:45)
[2016-06-11] MEDS: ELIQUIS PO SCH ×2 (11:45→21:40)
[2016-06-11] MEDS: DEPAKOTE PO SCH (11:45)
[2016-06-11] MEDS: TYLENOL PO PRN (14:38)
--- NOTE | 2016-06-11 18:15 | PROGRESS NOTE ---
DATE: 06/11/2016 SUBJECTIVE: The patient is resting comfortably in bed. No acute events noted overnight. OBJECTIVE: Vital Signs: Temperature 99 degrees, blood pressure 131/68, heart rate 83, respirations 18, O2 saturations 97% on 4 L nasal cannula. General: This is a chronically ill- appearing elderly male lying in bed in no acute distress. Head: Normocephalic, atraumatic. Heart: S1, S2. Normal. Regular rate and rhythm. Lungs: Coarse breath sounds bilaterally. No crackles. No rales. Abdomen: Positive bowel sounds. Soft, nontender, nondistended. Extremities: +1 edema. No cyanosis. No calf tenderness. Neuro: The patient is awake and alert. LABS: White blood cell count 3.6, hemoglobin 9.1, hematocrit 29, platelets 151,000. Sodium 137, potassium 4.6, chloride 104, CO2 24, BUN 24, creatinine 1.3, glucose 142. ASSESSMENT AND PLAN: 1. Gastrointestinal bleed. The patient's EGD revealed gastritis. The patient's hemoglobin and hematocrit are currently stable. Continue on IV Protonix. GI is following. 2. Anemia of acute blood loss. The patient's hemoglobin and hematocrit is stable. Will continue to monitor this closely. 3. Acute kidney injury on chronic kidney disease. The patient's creatinine continues to improve daily. Will continue to monitor this closely. 4. Mild volume overload. Continue to monitor this closely. The patient did receive 40 mg of IV Lasix yesterday. 5. Constipation. Continue on MiraLAX. Will add Dulcolax. 6. Hypothyroid. Continue on Synthroid. 7. Deep vein thrombosis. Continue on Eliquis. 8. Will consult physical therapy and occupational therapy. 9. Disposition. The patient's states that she is interested in having the patient placed in rehab. Will consult social scientist to assist with arranging this.
[2016-06-11] MEDS: PRAVACHOL PO SCH (21:40)
[2016-06-11] MEDS: ELAVIL PO SCH (21:41)
[2016-06-12] MEDS: DUONEB (A & A) INH SCH ×4 (03:21→21:10)
[2016-06-12] MEDS: ZOSYN 3.375 GM/NS 50 ML IV SCH ×3 (06:03→22:01)
[2016-06-12] MEDS: SYNTHROID PO SCH (06:17)
[2016-06-12] MEDS: DULCOLAX PR SCH ×2 (06:27→22:02)
[2016-06-12 06:33] LABS: MANUAL DIFF NEEDED? NO
[2016-06-12] MEDS: NORCO-5 PO PRN ×4 (06:37→23:07)
[2016-06-12 06:38] LABS: BASO% 0.2 % (0.0-0.8); EOS# 0.34 X1000 (0.0-0.7); EOS% 7.8 % (0.0-10.0); HEMATOCRIT 29.6 % (42.0-52.0); HEMOGLOBIN 9.5 g/dL (14.0-18.0); IMM GRAN# 0.07 X1000 (0.0-0.04); IMM GRAN% 1.6 % (0.0-0.5); LYMPH% 25.2 % (20.5-51.1); MCH 31.8 PG (27-31); MCHC 32.1 g/dL (33-37); MONO# 0.57 X1000 (0.11-0.59); MONO% 13.1 % (1.7-9.3); MPV 9.7 FL (7.4-10.4); NEUT% 52.1 % (42.2-75.2); PLT 144 X1000 (130-400); RBC 2.99 XMIL (4.7-6.1)
[2016-06-12 07:17] LABS: CALCIUM 9.1 mg/dL (8.8-10.2); POTASSIUM 4.7 mmol/L (3.5-5.1)
[2016-06-12] MEDS: LOPID PO SCH (10:22)
[2016-06-12] MEDS: NEURONTIN PO SCH ×2 (10:22→22:02)
[2016-06-12] MEDS: PROTONIX IV SCH (10:23)
[2016-06-12] MEDS: MIRALAX PO SCH (10:23)
[2016-06-12] MEDS: CYMBALTA PO SCH (10:23)
[2016-06-12] MEDS: ELIQUIS PO SCH ×2 (10:23→22:02)
[2016-06-12] MEDS: DEPAKOTE PO SCH (10:23)
--- NOTE | 2016-06-12 11:21 | PROGRESS NOTE ---
DATE: 06/12/2016 SUBJECTIVE: The patient denies complaints today. No evidence of active bleeding. I do not see where he has had a bowel movement since 06/08 per I and O report. OBJECTIVE: Vital signs: Temperature 99.0 degrees, pulse 79, respirations 18, blood pressure 123/50. General: Patient is awake and alert. No acute distress. HEENT: Normocephalic, atraumatic. Pupils equal, round, reactive to light. Cardiovascular: Regular rate and rhythm. Respiratory: Lung sounds essentially clear. Abdomen: Soft, nontender. Positive bowel sounds. DIAGNOSTIC RESULTS: Hematology: White count 4.36, hemoglobin 9.5, hematocrit 29.6, MCV 99.0, platelet 144. Chemistry: Sodium 139, potassium 4.7, chloride 104, CO2 22, BUN 22, creatinine 1.2, glucose 112. ASSESSMENT AND PLAN: 1. Gastrointestinal bleed. This seems to have resolved. He had an esophagogastroduodenoscopy that revealed gastritis. Hemoglobin and hematocrit are stable. Continue proton pump inhibitor. 2. Anemia has improved and has been stable. 3. Constipation. He is receiving MiraLAX. He also has a Dulcolax suppository ordered for bedtime. We may need to add something to that if he does not have a bowel movement in the next day or so. Gastroenterology will continue to follow. Further plan will be made as needed. Dictated by CLARK Almodovar for Bruno Steinberg MD
--- NOTE | 2016-06-12 13:06 | PROGRESS NOTE ---
DATE: 06/12/2016 SUBJECTIVE: The patient is sitting up. He is awake and alert, eating breakfast. No acute events noted overnight. OBJECTIVE: Vital Signs: Temperature 99 degrees, blood pressure 123/50, heart rate 84, respirations 20, O2 saturation is 98% on 3 L nasal cannula. General: This is a chronically ill- appearing, elderly male, lying in bed, in no acute distress. Head: Normocephalic, atraumatic. Heart: S1, S2. Normal. Regular rate and rhythm. Lungs: Clear to auscultation bilaterally. No wheezes. No rales. No rhonchi. Abdomen: Positive bowel sounds. Soft, nontender, nondistended. Extremities: No edema. No cyanosis. No calf tenderness. Neurologic: The patient is awake and alert. LABS: White blood cell count 4.3, hemoglobin 9.5, hematocrit 29, platelets 144,000. Sodium 139, potassium 4.7, chloride 104, CO2 22, BUN 22, creatinine 1.2, glucose 112. ASSESSMENT AND PLAN: 1. Gastrointestinal bleed. Resolved. The patient's EGD revealed gastritis. The patient has not had a bowel movement in several days. 2. Anemia of acute blood loss. The patient's hemoglobin and hematocrit are stable. 3. Chronic kidney disease. Stable. 4. Constipation. Continue on scheduled laxatives. GI is following. 5. Hypothyroidism. Continue on Synthroid. 6. 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 7. Continue with physical therapy. 8. Disposition. Will plan to discharge the patient to rehab when a bed is available.
[2016-06-12] MEDS: PRAVACHOL PO SCH (22:02)
[2016-06-12] MEDS: ELAVIL PO SCH (22:02)
[2016-06-13] MEDS: NORCO-5 PO PRN ×4 (02:56→21:40)
[2016-06-13] MEDS: DUONEB (A & A) INH SCH ×4 (03:04→21:15)
[2016-06-13] MEDS: ZOSYN 3.375 GM/NS 50 ML IV SCH ×4 (06:01→23:29)
[2016-06-13] MEDS: SYNTHROID PO SCH (06:01)
[2016-06-13] MEDS ORDERED: SODIUM CHLORIDE 0.9% 10 ML ONE (07:17)
[2016-06-13 07:50] LABS: HEMATOCRIT 29.1 % (42.0-52.0); HEMOGLOBIN 9.4 g/dL (14.0-18.0); MCH 32.3 PG (27-31); MCHC 32.3 g/dL (33-37); MPV 10.2 FL (7.4-10.4); RBC 2.91 XMIL (4.7-6.1)
[2016-06-13 08:11] LABS: AGAP 13; BUN 22 mg/dL (8-22); CALCIUM 8.5 mg/dL (8.8-10.2); CHLORIDE 105 mmol/L (98-107); COSMO 281; POTASSIUM 4.4 mmol/L (3.5-5.1); SODIUM 139 mmol/L (136-145); TCO2 21 mmol/L (25-35)
[2016-06-13] MEDS: CYMBALTA PO SCH (09:29)
[2016-06-13] MEDS: ELIQUIS PO SCH ×2 (09:29→19:58)
[2016-06-13] MEDS: DEPAKOTE PO SCH (09:29)
[2016-06-13] MEDS: NEURONTIN PO SCH ×2 (09:29→19:58)
[2016-06-13] MEDS: MIRALAX PO SCH (09:29)
[2016-06-13] MEDS: LOPID PO SCH (09:29)
[2016-06-13] MEDS: PROTONIX IV SCH (09:30)
--- NOTE | 2016-06-13 14:19 | PROGRESS NOTE ---
DATE: 06/13/2016 SUBJECTIVE: Patient is lying in the bed. He is awake and alert. No acute distress. He does report some generalized pain and was asking for a pain pill. OBJECTIVE: Vital Signs: Temperature 97.8 degrees, pulse 81, respirations 20, blood pressure 129/68. General: No acute distress noted. Respiratory: Lung sounds essentially clear. Abdomen: Positive bowel sounds. Soft, nontender. LABORATORY DATA: Hematology count 4.05, hemoglobin 9.4, hematocrit 29.1, MCV 100. Chemistry: Sodium 139, potassium 4.4, chloride 105, CO2 21, BUN 22, creatinine 1.1. ASSESSMENT AND PLAN: Gastrointestinal bleed. There was a noted stool today that was reported as dark tarry. His hemoglobin and hematocrit however are stable today. Constipation continued. Continue laxatives as ordered. Continue current medications. Continue to monitor hemoglobin and hematocrit. Monitor for any active bleeding. There are plans for him to transfer to rehab when bed is available. GI will be available as needed. Dictated by CLARK Almodovar for Bruno Steinberg MD
--- NOTE | 2016-06-13 15:25 | PROGRESS NOTE ---
DATE: 06/13/2016 SUBJECTIVE: The patient is resting comfortably in bed. His is at the bedside. The patient did have a dark tarry stool, but otherwise no other events noted overnight. OBJECTIVE: Vital Signs: Temperature 97.8 degrees, blood pressure 129/68, heart rate 81, respirations 20, O2 saturation 97% on 3L nasal cannula. General: This is an elderly male lying in bed in no acute distress. HEENT: Head normocephalic, atraumatic. Heart: S1 and S2 normal. Regular rate and rhythm. Lungs: Clear to auscultation bilaterally. No wheezes , no rales, no rhonchi. Abdomen: Positive bowel sounds. Soft, nontender, nondistended. Extremities: No edema. No cyanosis. No calf tenderness. Neurologic: The patient is alert and oriented. LABORATORIES: White blood cell count 4, hemoglobin 9.4, hematocrit 29, platelets 142,000. Sodium 139, potassium 4.4, chloride 105, CO2 of 21, BUN 22, creatinine 1.1, glucose 107. ASSESSMENT AND PLAN: 1. Gastrointestinal bleed. Resolved. 2. Anemia. The patient's hemoglobin and hematocrit are stable. 3. Gastritis. Continue on Protonix. 4. Hypothyroidism. Continue on synthroid 5. Constipation. Continue on scheduled laxative therapy. 6. Acute kidney injury. Resolved. 7. 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 8. Continue with physical therapy. 9. Disposition. [employer] is working on rehabilitation placement for the patient. [facility]
[2016-06-13] MEDS: PRAVACHOL PO SCH (19:58)
[2016-06-13] MEDS: DULCOLAX PR SCH (19:58)
[2016-06-13] MEDS: ELAVIL PO SCH (19:58)
[2016-06-14] MEDS: DULCOLAX PR SCH (01:39)
[2016-06-14] MEDS: ELAVIL PO SCH (01:39)
[2016-06-14] MEDS: NEURONTIN PO SCH ×2 (01:40→08:55)
[2016-06-14] MEDS: PRAVACHOL PO SCH (01:40)
[2016-06-14] MEDS: ELIQUIS PO SCH ×2 (01:40→08:47)
[2016-06-14] MEDS: NORCO-5 PO PRN ×3 (02:19→13:05)
[2016-06-14] MEDS: DUONEB (A & A) INH SCH ×2 (03:39→09:49)
[2016-06-14] MEDS: SYNTHROID PO SCH ×3 (04:08→06:06)
[2016-06-14] MEDS: ZOSYN 3.375 GM/NS 50 ML IV SCH ×2 (04:09→12:55)
[2016-06-14 06:58] LABS: MCH 32.4 PG (27-31); MCHC 32.3 g/dL (33-37); MCV 100.3 FL (81-99); MPV 10.1 FL (7.4-10.4); RBC 3.09 XMIL (4.7-6.1)
[2016-06-14 07:09] LABS: CALCIUM 8.8 mg/dL (8.8-10.2); POTASSIUM 4.6 mmol/L (3.5-5.1)
[2016-06-14] MEDS ORDERED: SODIUM CHLORIDE 0.9% 10 ML ONE (08:06)
[2016-06-14] MEDS: DEPAKOTE PO SCH (08:47)
[2016-06-14] MEDS: PROTONIX IV SCH (08:47)
[2016-06-14] MEDS: MIRALAX PO SCH (08:48)
[2016-06-14] MEDS: LOPID PO SCH (08:48)
[2016-06-14] MEDS: CYMBALTA PO SCH (08:48)
--- NOTE | 2016-06-14 10:53 | DISCHARGE SUMMARY ---
ADMISSION DATE: 06/06/2016 DISCHARGE DATE: 06/14/2016 CONSULTATIONS: Dr. Steinberg with Gastroenterology. PERTINENT PROCEDURES: Esophagogastroduodenoscopy performed by Dr. Steinberg. DISCHARGE DIAGNOSES: 1. Gastrointestinal bleed 2. Anemia of acute blood loss 3. Gastritis 4. Hypothyroidism 5. Constipation 6. Acute kidney injury 7. Lower extremity deep venous thrombosis HOSPITAL COURSE: Briefly, Mr. Nix is an 86-year-old male whose primary care physician is Dr. 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 The patient was very weak, fatigued. His gave a majority of the history. According to the , the patient went and had his INR checked Saturday. The level was fine. The patient was told to go home and continue with his Coumadin. The patient took the medication as prescribed, but his noticed that he started having nosebleeds. She did try to pack it with ice to get it to stop. It would stop for a minute, but if moved positions it would start dripping again. Initial lab work in the ED found that the patient's INR was greater than 11. His hemoglobin and hematocrit were 5 and 17. The patient appeared pale as well as drowsy. also reported tarry stool from time to time. The patient did report that he was on Xarelto prior to being on Coumadin, but because of the cost his doctor switched him to Coumadin instead. The patient was admitted for anemia secondary to GI bleed and nosebleed. He was given subcutaneous Vitamin K as well as transfused with 2 units with a GI consult. The patient did undergo an EGD with Dr. Steinberg that just showed gastritis. Otherwise, it was a normal EGD. Patient's INR went from greater than 11.25 to, after receiving Vitamin K, 1.48. The patient was able to resume Eliquis. He has been tolerating that well with no bleeding issues. His hemoglobin and hematocrit have remained stable. Nosebleed has resolved. Customer Service Professional was contacted for rehab placement. The patient has been accepted to [facility]. VITAL SIGNS AT THE TIME OF DISCHARGE: Temperature is 98.5, heart rate 78, respirations 20, blood pressure 126/59, O2 is 96% on room air. LABORATORIES: Last PT INR was 15.7 and 1.48. Hemoglobin and hematocrit this morning were 10 and 31. DISCHARGE DIET: Mechanical soft with Ensures t.i.d. with meals. DISCHARGE MEDICATIONS: 1. Tylenol 325 mg p.o. at bedtime. 2. Aspirin 81 mg p.o. daily. 3. Depakote 500 mg p.o. daily. 4. Gemfibrozil one 600 mg tab p.o. daily. 5. Lopressor one tab p.o. daily. 6. Pravachol 40 mg p.o. at bedtime. 7. Zantac one tab p.o. b.i.d. 8. Synthroid 75 mcg p.o. daily. 9. Amitriptyline 10 mg p.o. at bedtime. 10.Cymbalta 60 mg p.o. daily. 11.Gabapentin 300 mg p.o. b.i.d. 12.Central 5/325 one tab p.o. at bedtime. 13.Lasix 40 mg p.o. daily. 14.Prinivil 10 mg p.o. daily. 15.Eliquis 5 mg p.o. b.i.d for 5 days then switch to 2.5mg oral BID 16.MiraLAX 17 g p.o. daily. 17.Bisacodyl 10 mg p.r. at bedtime. FOLLOWUP: The patient will be discharged to [facility]. He will follow up with his primary care physician, Dr. Louie Smart after rehab as well as Dr. Steinberg. Patient and family to monitor any signs and symptoms of any bleeding. They can return to the ED for any worsening of symptoms. Dictated by CLARK Dyer for Merle Pike MD MTDD
[2016-06-14 14:11] VITALS: BP 120/60
== END 2016-06-14 15:37 | DRG 377 ==
LOC: EDBD → ED 15:16 → ICU 06-06 00:26 → 3N 06-09 17:08
PROVIDERS: ATTEND Internal Medicine
PROC: 30233N1 Transfusion of Nonautologous Red Blood Cells into Peripheral Vein, Percutaneous Approach (ICD-10-PCS; 2016-06-05)
PROC: 30233K1 Transfusion of Nonautologous Frozen Plasma into Peripheral Vein, Percutaneous Approach (ICD-10-PCS; 2016-06-05)
PROC: 0DJ08ZZ Inspection of Upper Intestinal Tract, Via Natural or Artificial Opening Endoscopic (ICD-10-PCS; principal; 2016-06-07 12:25)
DX: K29.71 Gastritis, unspecified, with bleeding (principal); J69.0 Pneumonitis due to inhalation of food and vomit; N17.9 Acute kidney failure, unspecified; G62.9 Polyneuropathy, unspecified; D62 Acute posthemorrhagic anemia; E87.70 Fluid overload, unspecified; N18.9 Chronic kidney disease, unspecified; I12.9 Hypertensive chronic kidney disease with stage 1 through stage 4 chronic kidney disease, or unspecified chronic kidney disease; E86.0 Dehydration; R04.0 Epistaxis; Z95.1 Presence of aortocoronary bypass graft; I25.10 Atherosclerotic heart disease of native coronary artery without angina pectoris; E78.5 Hyperlipidemia, unspecified; I25.2 Old myocardial infarction; K21.9 Gastro-esophageal reflux disease without esophagitis; E03.9 Hypothyroidism, unspecified; F32.9 Major depressive disorder, single episode, unspecified; G40.909 Epilepsy, unspecified, not intractable, without status epilepticus; Z87.891 Personal history of nicotine dependence; Z79.899 Other long term (current) drug therapy; Z79.82 Long term (current) use of aspirin; Z79.01 Long term (current) use of anticoagulants; Z86.718 Personal history of other venous thrombosis and embolism; R79.1 Abnormal coagulation profile; G89.4 Chronic pain syndrome; H91.90 Unspecified hearing loss, unspecified ear; K44.9 Diaphragmatic hernia without obstruction or gangrene; Z86.19 Personal history of other infectious and parasitic diseases; K59.00 Constipation, unspecified
CPT/HCPCS: 36415; 36430; 71010; 71020; 80048; 80053; 81001; 82270; 83735; 84484; 85014; 85018; 85025; 85027; 85610; 85730; 86850; 86900; 86901; 86920; 93005; 94640; 94761; 96365; C9113; J1940; J2405; J2543; J3430; J7030; J7040; P9016; P9017; 97110-GP; 97116-GP; 97530-GP; 99285-25; S0164